=== PATIENT | female | born 1970 | race Caucasian/White ===

== ENCOUNTER 2017-05-22 06:36 | Emergency (ER) | payer MEDICAID ==
[~2017-05-22] VITALS: Ht 157.5 cm; Wt 59.0 kg
[~2017-05-22 06:36] MED LIST: ACET-141 PO; ACET-915 PO; ACET325T33 PO; IBUP400T22 PO; NAPR-260 PO
[2017-05-22 06:39] VITALS: Ht 157.5 cm; Wt 59.0 kg
[2017-05-22] MEDS ORDERED: ONDANSETRON 4 MG INJ IV STA (07:00)
[2017-05-22] MEDS ORDERED: morphine 4 MG/ML VIAL IV STA (07:00)
[2017-05-22] MEDS ORDERED: SOD CHLORIDE 0.9% 1,000 ML IV STA (07:00)
--- NOTE | 2017-05-22 07:08 | ERD ---
ER Documentation Chief Complaint Date/Time DATE: 05/22/17 TIME: 07:06 Chief Complaint r ap x 2 weeks HPI This is a 46-year-old female status post cholecystectomy, presenting to the emergency department complaining of generalized abdominal pain for the past 3 weeks however she states that the most pain is located in the right lower quadrant. Patient rates the pain as constant, 9 9 out of 10 and achy. She states that nothing makes it better or worse. Patient admits to having associated nausea. She denies any vomiting, diarrhea, constipation Patient states that she is able to eat. Patient states that her last menstrual period was in September however she is irregular as it is. Denies any fevers, dysuria, hematuria states that she took ibuprofen yesterday without any relief. ROS All systems reviewed and are negative except as per history of present illness. Medications Home Meds Active Scripts Naproxen* (Naprosyn*) 500 Mg Tablet, 500 MG PO BID Y for PAIN AND/OR INFLAMMATION, #30 TAB Prov:DOMINICK JOHNSON PA-C 05/22/17 Naproxen* (Naprosyn*) 500 Mg Tablet, 500 MG PO BID Y for PAIN AND/OR INFLAMMATION, #30 TAB Prov:DEVIN ZARATE 07/08/16 Acetaminophen* (Acetaminophen*) 500 MG Extra Strength Tablet, 500 MG PO Q4H Y for PAIN AND OR ELEVATED TEMP, #30 TAB Prov:DOMINICK JOHNSON PA-C 12/06/15 Ibuprofen* (Motrin*) 400 Mg Tab, 400 MG PO Q6H Y for PAIN AND OR ELEVATED TEMP, #30 TAB Prov:DOMINICK JOHNSON PA-C 12/06/15 Acetaminophen* (Tylenol*) 325 Mg Tablet, 2 TAB PO Q8 Y for PAIN AND OR ELEVATED TEMP, #20 TAB Prov:TERI MATTHEW PA-C 08/31/15 Reported Medications Acetaminophen* (Tylenol*) 325 Mg Tab, 325 MG PO PRN 02/19/13 [None] No Conflict Check 02/01/13 Allergies Allergies: Coded Allergies: No Known Allergies (Verified Allergy, Mild, 05/22/17) PMhx/Soc History of Surgery: Yes (2 c-sections, and gallbladder stone removal) Anesthesia Reaction: No Hx Neurological Disorder: No Hx Respiratory Disorders: No Hx Cardiac Disorders: No Hx Psychiatric Problems: No Hx Miscellaneous Medical Probl: No Hx Alcohol Use: No Hx Substance Use: No Hx Tobacco Use: No Smoking Status: Never smoker Physical Exam Vitals Vital Signs Date Time Temp Pulse Resp B/P Pulse Ox O2 Delivery O2 Flow Rate FiO2 05/22/17 06:39 98.0 63 18 135/72 98 Physical Exam GENERAL: well-developed/well-nourished, in no apparent distress, non-toxic appearing HENT: NC/AT, moist mucous membranes EYES: Conjunctiva normal NECK: Supple, no lymphadenopathy PULM: CTA bilaterally, no rales, rhonchi, or wheezing heard CV: Normal S1S2, RRR, good capillary refill GI: Soft, non-distended, generalized abdominal pain in all quadrants Normal bowel sounds, no masses or organomegaly felt on exam No gross peritonitis, no bruits Negative Rovsing, negative Fung, negative McBurney's point, Negative CVAT BACK: No masses EXT: No clubbing, cyanosis, or edema NEURO: Alert and Orientated SKIN: Intact, normal turgor PSYCH: Normal mood and mentation Result Diagram: 05/22/17 0700 05/22/17 0700 Results 24 hrs Laboratory Tests Test 05/22/17 07:00 White Blood Count 6.510^3/ul Red Blood Count 4.3110^6/ul Hemoglobin 13.3g/dl Hematocrit 38.9% Mean Corpuscular Volume 90.3fl Mean Corpuscular Hemoglobin 30.9pg Mean Corpuscular Hemoglobin Concent 34.2g/dl Red Cell Distribution Width 12.9% Platelet Count 49301^3/UL Mean Platelet Volume 13.1fl Neutrophils % 58.9% Lymphocytes % 29.3% Monocytes % 6.6% Eosinophils % 4.2% Basophils % 0.5% Nucleated Red Blood Cells % 0.0/100WBC Neutrophils # 3.810^3/ul Lymphocytes # 1.910^3/ul Monocytes # 0.410^3/ul Eosinophils # 0.310^3/ul Basophils # 0.010^3/ul Nucleated Red Blood Cells # 0.010^3/ul Urine Color YELLOW Urine Clarity SLIGHTLY CLOUDY Urine pH 5.0 Urine Specific [place] 1.015 Urine Ketones NEGATIVEmg/dL Urine Nitrite NEGATIVEmg/dL Urine Bilirubin NEGATIVEmg/dL Urine Urobilinogen NEGATIVEmg/dL Urine Leukocyte Esterase NEGATIVELeu/ul Urine Microscopic RBC 1/HPF Urine Microscopic WBC 2/HPF Urine Squamous Epithelial Cells FEW/HPF Urine Bacteria FEW/HPF Urine Hemoglobin NEGATIVEmg/dL Urine Glucose NEGATIVEmg/dL Urine Total Protein NEGATIVEmg/dl Sodium Level 143mmol/L Potassium Level 4.1mmol/L Chloride Level 108mmol/L Carbon Dioxide Level 25mmol/L Anion Gap 14 Blood Urea Nitrogen 15mg/dl Creatinine 0.57mg/dl Glucose Level 99mg/dl Calcium Level 9.3mg/dl Total Bilirubin 0.5mg/dl Direct Bilirubin 0.00mg/dl Indirect Bilirubin 0.5mg/dl Aspartate Amino Transf (AST/SGOT) 27IU/L Alanine Aminotransferase (ALT/SGPT) 34IU/L Alkaline Phosphatase 58IU/L Total Protein 7.7g/dl Albumin 4.5g/dl Globulin 3.20g/dl Albumin/Globulin Ratio 1.40 Lipase 109U/L Current Medications Medications (Trade) Dose Ordered Sig/Lucille Route PRN Reason Start Time Stop Time Status Last Admin Dose Admin Sodium Chloride (NS) 1,000 ml @ 1,000 mls/hr Q1H STAT IV 05/22/17 07:00 05/22/17 07:59 DC 05/22/17 07:13 Morphine Sulfate (morphine) 4 mg ONCE STAT IV 05/22/17 07:00 05/22/17 07:06 DC 05/22/17 07:13 Ondansetron HCl (Zofran Inj) 4 mg ONCE STAT IV 05/22/17 07:00 05/22/17 07:06 DC 05/22/17 07:12 Procedures/MDM This is a 46-year-old female status post cholecystectomy without any relevant medical problems presenting to the emergency room complaining of generalized abdominal pain for the past 3 weeks, this is likely due to uterine fibroids and ovarian hemorrhagic cyst. There was no evidence of small or large bowel obstruction, appendicitis, diverticulitis, choledocholithiasis or other acute emergent conditions. Patient has stable vital signs, she appears well and nontoxic. Lab work was drawn. CBC did not show any evidence of leukocytosis or anemia. CMP did not show any evidence of renal, liver, or electrolyte abnormalities. Lipase was normal. UA did not show any evidence of hemoglobin or urinary tract infection. A CT of the abdomen and pelvis was done and radiologist stated: 1. Small amount of free fluid in the cul-de-sac. No other abdominal free fluid , free air, abscesses or lymphadenopathy. 2. Unremarkable appendix. No evidence gastrointestinal disease. 3. Status post cholecystectomy without biliary ductal dilation. 4. No evidence of calcified urinary calculi or obstructive uropathy. Pelvic ultrasound: 1. Heterogeneous uterus with multiple myomata identified. 2. IUD in the endometrium. 3. 2.5 cm left ovarian hemorrhagic cyst. I discussed with patient that she is suitable to follow-up with her primary care physician and LUMBER SALVAGER. I discussed the patient to return to the ER for any worsening signs and patient understands and agrees with this plan Departure Diagnosis: Primary Impression: Abdominal pain Abdominal location: generalized Qualified Code: R10.84 - Generalized abdominal pain Additional Impressions: Ovarian cyst Fibroids Condition: Stable DOMINICK JOHNSON PA-C May 22, 2017 07:08
[2017-05-22 07:40] LABS: ABNORMAL IP MESSAGE 1; BASOPHILS % 0.5 % (0.0-2.0); EOSINOPHILS # 0.3 10^3/ul (0.0-0.5); EOSINOPHILS % 4.2 % (0.0-7.0); HEMATOCRIT 38.9 % (37.0-47.0); HEMOGLOBIN 13.3 g/dl (12.0-16.0); LYMPHOCYTES # 1.9 10^3/ul (0.8-2.9); LYMPHOCYTES % 29.3 % (15.0-51.0); MEAN CORPUSCULAR HEMOGLOBIN 30.9 pg (29.0-33.0); MEAN CORPUSCULAR HGB CONC 34.2 g/dl (32.0-37.0); MEAN CORPUSCULAR VOLUME 90.3 fl (82.0-101.0); MEAN PLATELET VOLUME 13.1 fl (7.4-10.4); MONOCYTE # 0.4 10^3/ul (0.3-0.9); MONOCYTES % 6.6 % (0.0-11.0); NEUTROPHIL # 3.8 10^3/ul (1.6-7.5); NEUTROPHILS % 58.9 % (39.0-77.0); PLATELET COUNT 163 10^3/UL (140-415); RED BLOOD COUNT 4.31 10^6/ul (4.20-5.40); RED CELL DISTRIBUTION WIDTH 12.9 % (11.5-14.5); WHITE BLOOD COUNT 6.5 10^3/ul (4.8-10.8)
[2017-05-22 07:41] LABS: ADD SCAN DIFF NO
--- NOTE | 2017-05-22 07:44 | RADRPT ---
PROCEDURE: CT Abdomen and pelvis without contrast. CLINICAL INDICATION: Abdominal pain TECHNIQUE: CT scan of the abdomen and pelvis without contrast was performed on a multidetector hig h-resolution CT scan. . Coronal and sagittal reformatted images were obtained from the axial [facility] e images. Standard CT scan of the abdomen pelvis without contrast protocols were performed. The total exam CTDI equals 6.87 mGy and the total exam DLP equals 387.63 mGy-cm. One or more of the following dose reduction techniques were used: - Automated exposure control. - Adjustment of the mA and/or kV according to patient size. Use of iterative reconstruction technique. COMPARISON: CT abdomen pelvis 08/31/2015 FINDINGS: Status post cholecystectomy without biliary ductal dilation. The uterus is anteverted and anteflexed with an intrauterine device present. The uterus is otherwis e unremarkable. No evidence of adnexal masses. Small amount of free fluid in the cul-de-sac. No other abdominal free fluid, free air, abscesses or lymphadenopathy. The kidneys are normal in size without calcified renal calculi, hydronephrosis or intra renal masses bilaterally. The urinary bladder is unremarkable. The liver spleen pancreas adrenal glands are unremarkable. The stomach, small bowel, large bowel and appendix are unremarkable. No evidence of aortic aneurysm. Lower thoracic abdominal pelvic alarcon are unremarkable. Mild chron ic basilar interstitial lung disease. The lung bases are otherwise unremarkable. There is mild deg enerative changes lower thoracic and lumbar spine. There are no acute osseous findings are osteobla stic/osteolytic lesions. IMPRESSION: 1. Small amount of free fluid in the cul-de-sac. No other abdominal free fluid, free air, abscesse s or lymphadenopathy. 2. Unremarkable appendix. No evidence gastrointestinal disease. 3. Status post cholecystectomy without biliary ductal dilation. 4. No evidence of calcified urinary calculi or obstructive uropathy. RPTAT:AAJJ Physician Rubio Date Time Electronically viewed and signed by Physician Rubio on 05/22/2017 07:44 BM/
[2017-05-22 07:55] LABS: ADD UMIC NO; UR ASCORBIC ACID 20 mg/dL (NEGATIVE); UR BACTERIA FEW /HPF (NONE SEEN); UR BILIRUBIN (Dip) NEGATIVE (NEGATIVE); UR BLOOD (Dip) NEGATIVE (NEGATIVE); UR CLARITY SLIGHTLY CLOUDY (CLEAR); UR COLOR YELLOW (YELLOW); UR GLUCOSE (Dip) NEGATIVE (NEGATIVE); UR KETONES (Dip) NEGATIVE (NEGATIVE); UR LEUKOCYTE ESTERASE (Dip) NEGATIVE Leu/ul (NEGATIVE); UR NITRITE (Dip) NEGATIVE (NEGATIVE); UR RBC 1 /HPF (0-5); UR SPECIFIC GRAVITY (Dip) 1.015 (1.003-1.030); UR SQUAMOUS EPITHELIAL CELL FEW /HPF (FEW); UR TOTAL PROTEIN (Dip) NEGATIVE (NEGATIVE); UR UROBILINOGEN (Dip) NEGATIVE (NEGATIVE)
[2017-05-22 08:00] LABS: ALBUMIN 4.5 g/dl (3.3-4.9); ALBUMIN/GLOBULIN RATIO 1.4; BILIRUBIN,INDIRECT 0.5 mg/dl (0-1.1); BILIRUBIN,TOTAL 0.5 mg/dl (0.2-1.3); CALCIUM 9.3 mg/dl (8.4-10.2); CREATININE 0.57 mg/dl (0.44-1.00); POTASSIUM 4.1 mmol/L (3.5-5.1); TOTAL PROTEIN 7.7 g/dl (6.1-8.1)
--- NOTE | 2017-05-22 08:53 | RADRPT ---
PROCEDURE: US Pelvis. CLINICAL INDICATION: Pain. TECHNIQUE: Multiple sonographic images of the pelvis were obtained utilizing a transabdominal and endovaginal technique. The images were reviewed on a PACS workstation. COMPARISON: 08/31/2015. FINDINGS: The uterus is retroverted and heterogeneous in appearance measuring 11.1 x 4.6 x 5.5 cm. There are m ultiple small intramural fibroids. The largest measuring 1.3 x 0.9 cm. The endometrial echo complex is remarkable for an IUD and measures 6.0 mm. There is trace free fluid in the cul-de-sac which may be physiologic. The right ovary has a normal echotexture and measures 2.1 x 1.0 x 1.7 cm. The left ovary has a normal echotexture and measures 4.8 x 2.4 x 4.0 cm. There is a 2.5 cm hemorrhagic cyst in the left ovary and a 2.1 cm follicular cyst in the left ovary. No adnexal masses are noted. IMPRESSION: 1. Heterogeneous uterus with multiple myomata identified. 2. IUD in the endometrium. 3. 2.5 cm left ovarian hemorrhagic cyst. RPTAT: AACC Physician Connie Date Time Electronically viewed and signed by Physician Connie on 05/22/2017 08:53 /
[2017-05-22] MEDS ORDERED: NAPR-260 PO (09:10)
== END 2017-05-22 09:22 | disposition home or self-care (01) ==
LOC: FTE 06:36
DX: R10.84 Generalized abdominal pain (principal); N83.202 Unspecified ovarian cyst, left side; D25.9 Leiomyoma of uterus, unspecified; R11.0 Nausea
CPT/HCPCS: 36415; 74176; 76830; 76856; 80053; 81001; 81003; 83690; 85025; 96374; 96375; J2270; J2405; J7030; Z7502

== ENCOUNTER 2019-04-15 08:15 | Emergency (ER) | payer MEDICAID ==
[~2019-04-15] VITALS: Ht 165.1 cm; Wt 57.3 kg
[~2019-04-15 08:15] MED LIST changes: +IBUP-1561 PO; -IBUP400T22 PO; -NAPR-260 PO; +NAPR-985 PO
[2019-04-15 08:35] VITALS: BP 152/66; PULSE 67; RESP 16; Ht 165.1 cm; Wt 57.3 kg
[2019-04-15] MEDS ORDERED: FAMOTIDINE 20 MG TAB PO STA (08:46)
[2019-04-15] MEDS ORDERED: LIDOCAINE/MYLANTA 40 ML BTL PO STA (08:46)
[2019-04-15] MEDS ORDERED: KETOROLAC 30 MG INJ IM STA (08:46)
[2019-04-15] MEDS ORDERED: BELLADONNA/PHENOBARBITAL TAB PO STA (08:46)
[2019-04-15] MEDS ORDERED: ESOM40CA PO (08:49)
[2019-04-15] MEDS ORDERED: FAMO-96 PO (08:49)
[2019-04-15] MEDS ORDERED: NAPR-985 PO (08:49)
[2019-04-15] MEDS ORDERED: MAG355OR14 PO (08:49)
--- NOTE | 2019-04-15 09:37 | ERD ---
ER Documentation Chief Complaint Chief Complaint MIDLINE CONSTANT AP X2 MONTHS HPI 48-year-old woman complains of sharp burning epigastric abdominal pain constant, daily, x2 months. She denies precipitating or alleviating factors, no fevers or chills, no complaints of chest pain or shortness of breath, no blood per rectum or melena ROS All systems reviewed and are negative except as per history of present illness. Medications Home Meds Active Scripts Esomeprazole Mag Trihydrate (Nexium) 40 Mg Capsule.dr, 40 MG PO DAILY, #30 CAP Prov:CHANELL JEWELL MD 04/15/19 Famotidine* (Pepcid*) 20 Mg Tablet, 20 MG PO BID for 28 Days, TAB Prov:CHANELL JEWELL MD 04/15/19 Mag Hydrox/Al Hydrox/Simeth (Maalox Advanced Suspension) 355 Ml Oral.susp, 2 TSP PO TID PRN for PAIN, #20 OZ Prov:CHANELL JEWELL MD 04/15/19 Naproxen* (Naprosyn*) 500 Mg Tablet, 500 MG PO BID PRN for PAIN AND/OR INFLAMMATION, #30 TAB Prov:CHANELL JEWELL MD 04/15/19 Naproxen* (Naprosyn*) 500 Mg Tablet, 500 MG PO BID PRN for PAIN AND/OR INFLAMMATION, #30 TAB Prov:DOMINICK JOHNSON PA-C 05/22/17 Naproxen* (Naprosyn*) 500 Mg Tablet, 500 MG PO BID PRN for PAIN AND/OR INFLAMMATION, #30 TAB Prov:DEVIN ZARATE 07/08/16 Acetaminophen* (Acetaminophen*) 500 MG Extra Strength Tablet, 500 MG PO Q4H PRN for PAIN AND OR ELEVATED TEMP, #30 TAB Prov:DOMINICK JOHNSON PA-C 12/06/15 Ibuprofen* (Motrin*) 400 Mg Tab, 400 MG PO Q6H PRN for PAIN AND OR ELEVATED TEMP, #30 TAB Prov:DOMINICK JOHNSON PA-C 12/06/15 Acetaminophen* (Tylenol*) 325 Mg Tablet, 2 TAB PO Q8 PRN for PAIN AND OR ELEVATED TEMP, #20 TAB Prov:TERI MATTHEW PA-C 9/30/15 Reported Medications Acetaminophen* (Tylenol*) 325 Mg Tab, 325 MG PO PRN 02/19/13 [None] No Conflict Check 02/01/13 Allergies Allergies: Coded Allergies: No Known Allergies (Verified Allergy, Mild, 05/22/17) PMhx/Soc History of Surgery: Yes (2 c-sections, and gallbladder stone removal) Anesthesia Reaction: No Hx Neurological Disorder: No Hx Respiratory Disorders: No Hx Cardiac Disorders: No Hx Psychiatric Problems: No Hx Miscellaneous Medical Probl: No Hx Alcohol Use: No Hx Substance Use: No Hx Tobacco Use: No Smoking Status: Never smoker FmHx Family History: No diabetes Physical Exam Vitals Vital Signs Date Temp Pulse Resp B/P (MAP) Pulse Ox O2 O2 Flow FiO2 Time Delivery Rate 04/15/19 97.5 67 16 152/66 100 08:35 (94) Physical Exam Const: Mild discomfort, afebrile, well-developed well-nourished, well-hydrated Head: Atraumatic Eyes: Normal Conjunctiva ENT: Normal External Ears, Nose and Mouth. Neck: Full range of motion. No meningismus. Resp: Clear to auscultation bilaterally Cardio: Regular rate and rhythm, no murmurs Abd: Soft, non tender, non distended. Normal bowel sounds. No guarding rigidity or rebound Skin: No petechiae or rashes Back: No midline or flank tenderness Ext: No cyanosis, or edema Neur: Awake and alert x3, no focal deficits or facial asymmetry Psych: Normal Mood and Affect Results 24 hrs Laboratory Tests Test 04/15/19 09:12 POC Beta HCG, Qualitative NEGATIVE Current Medications Medications Dose Sig/Lucille Start Time Status Last (Trade) Ordered Route PRN Stop Time Admin Dose Reason Admin Famotidine 20 mg ONCE STAT 04/15/19 DC 04/15/19 (Pepcid) PO 08:46 09:13 04/15/19 08:47 40 ml ONCE STAT 04/15/19 DC 04/15/19 Miscellaneous PO 08:46 09:12 Medication 04/15/19 08:47 (Gi Cocktail (2)) Belladonna/ 2 tab ONCE STAT 04/15/19 DC 04/15/19 Phenobarbital PO 08:46 09:13 () 04/15/19 08:47 Ketorolac 30 mg ONCE STAT 04/15/19 DC 04/15/19 Tromethamine IM 08:46 09:13 (Toradol) 04/15/19 08:47 Procedures/MDM I administered Toradol 30 mg IM x1, GI cocktail p.o., famotidine 20 mg p.o., I recommended she follow-up with her PMD for continued outpatient medical management and possible GI consultation for upper endoscopy I did tell her return in 8 to 12 hours for repeat abdominal examination and reevaluation, she has no indication at this time for imaging although appendicitis was not ruled out and she may be a better candidate if her symptoms continue or worsen. Differential diagnoses considered, included but not limited to acute coronary syndrome, pulmonary embolism, aortic dissection, abdominal aortic aneurysm, sepsis, stroke, meningitis, encephalitis, pneumonia, appendicitis, cholecystitis, bowel obstruction, pyelonephritis, nephrolithiasis, cystitis, as well as metabolic, hematologic, and electrolyte abnormalities. As well as abscess, cellulitis, fractures, and dislocations. Patient feels much better at this time, and vital signs are normal, symptoms have improved. I did give strict instructions to return to the ED if symptoms continue or worsen, patient will otherwise follow-up with primary care physician. Patient understood instructions and agreed to plan. Disclaimer: Inadvertent spelling and grammatical errors are likely due to EHR/dictation software use and do not reflect on the overall quality of patient care. Also, please note that the electronic time recorded on this note does not necessarily reflect the actual time of the patient encounter. Departure Diagnosis: Primary Impression: Abdominal pain Abdominal location: epigastric Qualified Codes: R10.13 - Epigastric pain Additional Impression: Gastritis Gastritis type: superficial Chronicity: acute Gastritis bleeding: without bleeding Qualified Codes: K29.00 - Acute gastritis without bleeding Condition: Good Patient Instructions: Gastritis (Adult), Gastritis Vs. Ulcer CHANELL JEWELL MD April 15, 2019 09:37
== END 2019-04-15 09:23 | disposition home or self-care (01) ==
LOC: FTE 08:15
DX: K29.00 Acute gastritis without bleeding (principal)
CPT/HCPCS: 81025; 96372; J1885; Z7502; Z7610